=== PATIENT | female | born 2000 | race Caucasian/White ===

== ENCOUNTER → 2018-04-10 | Outpatient (CLI) | payer OTHER ==
--- NOTE | 2018-04-10 09:46 | RAD ---
EXAM: Right knee, 2 views. HISTORY: Pain COMPARISON: None. FINDINGS: Frontal and lateral views of the right knee are obtained. There is no fracture, dislocation or subluxation. No joint effusion is seen. IMPRESSION: No acute osseous finding. Electronically signed by: Alma Santiago MD (04/10/2018 9:43 AM) [facility]
== END | disposition home or self-care (01) ==
LOC: PMG 09:28
PROVIDERS: ATTEND Nurse Practitioner Family
DX: M25.561 Pain in right knee (principal)
CPT/HCPCS: 73560